=== PATIENT | female | born 1950 | race Hispanic/Latino ===

== ENCOUNTER 2018-07-13 19:56 | Emergency (ER) | payer OTHER ==
[~2018-07-13] VITALS: Ht 162.6 cm; Wt 88.5 kg
--- OUTSIDE RECORDS SUMMARY | 2018-07-13 19:59 | XMS REPORT | Clinical Summary ---
Author Author ARABELLA [facility] Address Unknown Phone Unavailable Care Team Providers Care Manager Corporate Communications Name Role Phone Evgeny Colón MD PCP Allergies No Known Allergies Medications End Date Status Medication Sig Dispensed Refills Start Date Active atorvastatin (LIPITOR) 10 TAKE 1 (ONE) 2 MG tablet TABLET BY 8 MOUTH DAILY Active glimepiride (AMARYL) 2 MG TAKE 2 (TWO) 2 tablet TABLETS BY 8 MOUTH EVERY MORNING (BEFORE BREAKFAST) Active metFORMIN (GLUCOPHAGE) TOME [place] 2 1000 MG tablet TABLETA POR 8 V?A ORAL DOS VECES AL D?A 09/25/2017 Discontinued ciprofloxacin HCl (CIPRO) Take 1 tablet 12 tablet 0 500 MG tablet (500 mg 8 total) by mouth 2 (two) times daily for 6 days. 10/01/2017 ciprofloxacin HCl (CIPRO) Take 1 tablet 12 tablet 0 500 MG tablet (500 mg 8 total) by mouth 2 (two) times daily for 6 days. 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 09/24/2017 Encounters Care Team Description Date Type Specialty Maria Del Carmen Saul MD [facility], EvyMD Alexander Márquez Cherice Michelle, MD Swelling of arm (Primary Dx); History of diabetes mellitus 09/24/2017 Emergency General Internal Medicine - 09/25/2017 after 07/12/2017 Social History Date Tobacco Use Types Packs/Day Years Used Never Smoker Smokeless Tobacco: Never Used Alcohol Use Drinks/Week oz/Week Comments No Sex Assigned at Date Recorded Not on file Industry Job Start Date Occupation Not on file Not on file Not on file Travel End Travel History Travel Start No recent travel history available. Last Filed Vital Signs Time Taken Vital Sign Reading 09/25/2017 11:18 AM CDT Blood Pressure 131/63 09/25/2017 11:18 AM CDT Pulse 76 09/25/2017 11:18 AM CDT Temperature 37 C (98.6 F) 09/25/2017 11:18 AM CDT Respiratory Rate 17 09/25/2017 11:18 AM CDT Oxygen Saturation 96% - Inhaled Oxygen - Concentration 09/23/2017 8:22 PM CDT Weight 63.5 kg (140 lb) 09/23/2017 8:22 PM CDT Height 167.6 cm (5' 6") 09/23/2017 8:22 PM CDT Body Mass Index 22.6 Plan of Treatment Not on file Procedures Comments Procedure Name Priority Date/Time Associated Diagnosis XR SHOULDER RIGHT STAT 09/25/2017 COMPLETE MIN 2 VWS 12:59 PM CDT POCT-GLUCOSE METER Routine 09/25/2017 12:26 PM CDT POCT-GLUCOSE METER Routine 09/25/2017 9:21 AM CDT CBC W/PLT COUNT & AUTO Routine 09/25/2017 DIFFERENTIAL 5:34 AM CDT BASIC METABOLIC PANEL (7) Routine 09/25/2017 5:34 AM CDT CBC W/PLT COUNT & AUTO Routine 09/25/2017 DIFFERENTIAL 5:34 AM CDT POCT-GLUCOSE METER Routine 09/24/2017 9:08 PM CDT POCT-GLUCOSE METER Routine 09/24/2017 6:05 PM CDT HEPATIC FUNCTION PANEL Routine 09/24/2017 12:54 PM CDT CREATINE KINASE (CK) Routine 09/24/2017 12:54 PM CDT POCT-GLUCOSE METER Routine 09/24/2017 11:49 AM CDT POCT-GLUCOSE METER Routine 09/24/2017 7:54 AM CDT BLOOD CULTURE STAT 09/24/2017 5:40 AM CDT BLOOD CULTURE STAT 09/24/2017 5:[address] UPPER EXTREMITY WITH STAT 09/24/2017 CONTRAST RIGHT 4:25 AM CDT VENOUS DOPPLER ARMS STAT 09/23/2017 BILATERAL 11:59 PM CDT CBC W/PLT COUNT & AUTO STAT 09/23/2017 DIFFERENTIAL 10:44 PM CDT LACTIC ACID, VENOUS STAT 09/23/2017 10:44 PM CDT BLOOD GAS, VENOUS STAT 09/23/2017 10:44 PM CDT BASIC METABOLIC PANEL (7) STAT 09/23/2017 10:44 PM CDT CBC W/PLT COUNT & AUTO STAT 09/23/2017 DIFFERENTIAL 10:44 PM CDT after 07/12/2017 Results * XR shoulder complete 2 views min right (09/25/2017 12:59 PM CDT) Specimen Narrative Performed At FINAL REPORT [facility] EXAM: Right shoulder, 4 images HISTORY PROVIDED: Swelling of arm COMPARISON: CT upper extremity 09/24/2017 IMPRESSION: No fracture, dislocation, or osseous destruction. There is rotator cuff calcific tendinosis. The visualized right lung field is unremarkable. Signed: Jh Jones MD Report Verified Date/Time:09/25/2017 13:42:29 Reading Location: [facility] Reading Room Procedure Note Interface, External Ris In - 09/25/2017 1:44 PM CDT FINAL REPORT EXAM: Right shoulder, 4 images HISTORY PROVIDED: Swelling of arm COMPARISON: CT upper extremity 09/24/2017 IMPRESSION: No fracture, dislocation, or osseous destruction. There is rotator cuff calcific tendinosis. The visualized right lung field is unremarkable. Signed: Jh Jones MD Report Verified Date/Time: 09/25/2017 13:42:29 Reading Location: [facility] Mammo Reading Room Performing Organization Address City/State/Zipcode Phone Number [facility] * POC-Glucose meter (09/25/2017 12:26 PM CDT) Only the most recent of 6 results within the time period is included. POC-Glucose Meter 245 (H)Comment: TESTED AT 70 - 110 mg/dL [address] [address] Specimen Blood Performing Organization Address City/[facility] Phone Number [place] [phone] [place] [address] [facility] * CBC with platelet count + automated diff (09/25/2017 5:34 AM CDT) Only the most recent of 2 results within the time period is included. WBC 11.2 (H) 3.5 - 10.5 K/L [facility] RBC 3.89 (L) 3.93 - 5.22 M/L [facility] Hemoglobin 11.1 (L) 11.2 - 15.7 GM/DL [facility] Hematocrit 33.4 (L) 34.1 - 44.9 % [facility] MCV 85.9 79.4 - 94.8 fL [facility] MCH 28.5 25.6 - 32.2 pg [facility] MCHC 33.2 32.2 - 35.5 GM/DL [facility] RDW 13.2 11.7 - 14.4 % [facility] Platelets 343 150 - 450 K/CU MM [facility] MPV 10.5 9.4 - 12.3 fL [facility] nRBC 0 0 - 0 /100 WBC [facility] % Neutros 68 % [facility] % Lymphs 17 % [facility] % Monos 10 % [facility] % Eos 3 % [facility] % Baso 1 % [facility] # Neutros 7.66 (H) 1.56 - 6.13 K/L [facility] # Lymphs 1.95 1.18 - 3.74 K/L [facility] # Monos 1.15 (H) 0.24 - 0.36 K/L [facility] # Eos 0.30 0.04 - 0.36 K/L [facility] # Baso 0.10 (H) 0.01 - 0.08 K/L [facility] Immature 0 0 - 1 % [facility] Granulocytes-Relative [facility] Specimen Blood Performing Organization Address City/State/Zipcode Phone Number [facility] [address] [place] [address] [facility] * Basic metabolic panel (09/25/2017 5:34 AM CDT) Only the most recent of 2 results within the time period is included. Sodium 139 136 - 145 meq/L [facility] Potassium 4.2 3.5 - 5.1 meq/L [facility] Chloride 108 (H) 98 - 107 meq/L [facility] CO2 24 22 - 29 meq/L [facility] BUN 13 7 - 21 mg/dL [facility] Creatinine 0.95 0.57 - 1.25 mg/dL [facility] Glucose 166 (H) 70 - 105 mg/dL [facility] Calcium 9.1 8.4 - 10.2 mg/dL [facility] EGFR 58Comment: ESTIMATED GFR IS mL/min/1.73 sq m [facility] NOT ACCURATE CREATININE [facility] CLEARANCE IN PREDICTING GLOMERULAR FILTRATION RATE. ESTIMATED GFR IS NOT APPLICABLE FOR DIALYSIS PATIENTS. Specimen Blood Performing Organization Address City/State/Zipcode Phone Number [address] [address] [phone] [place] [address] * Creatine Kinase (CK) (09/24/2017 12:54 PM CDT) Total CK 47 29 - 200 U/L [facility] Specimen Blood Performing Organization Address City/[facility] Phone Number [address] [address] [phone] [place] [address] * Hepatic function panel (09/24/2017 12:54 PM CDT) Protein, Total 6.3 6.0 - 8.3 gm/dL [facility] Albumin 3.4 (L) 3.5 - 5.0 g/dL [facility] Total Bilirubin 0.8 0.2 - 1.2 mg/dL [facility] Bilirubin, Direct 0.4 0.1 - 0.5 mg/dL [facility] Alkaline Phosphatase 87 40 - 150 U/L [facility] AST 13 5 - 34 U/L [facility] ALT 12 6 - 55 U/L [facility] Specimen Blood Performing Organization Address City/[facility] [place]/Zipcode Phone Number [address] [address] [facility] * Blood culture (09/24/2017 5:40 AM CDT) Only the most recent of 2 results within the time period is included. Result No growth in 5 days [facility] Specimen Blood Performing Organization Address City/State/Zipcode Phone Number [facility] [address] [place] [address] [facility] * CT upper extremity with contrast right (09/24/2017 4:25 AM CDT) Specimen Narrative Performed At FINAL REPORT [facility] CT, EXTREMITY, UPPER, WITH CONTRAST, RIGHT INDICATION: Hand erythema, swelling, cellulitis suspected COMPARISON: None TECHNIQUE: Contrast enhanced CT examination of the right upper extremity from the shoulder joint through the distal phalanges. Coronal and sagittal reformatted images provided. DOSE REDUCTION: Dose modulation, iterative reconstruction, and/or weight-based adjustment of the mA/kV was utilized to reduce the radiation dose to as low as reasonably achievable. FINDINGS: Osseous structures: No fracture or osseous erosion is present. Upper extremity joints are normally aligned. Calcific tendinosis is present in the rotator cuff. Included osseous structures in the right hemithorax, hemiabdomen and upper portion of the right lower extremity are intact. Soft tissue structures: Mild soft tissue edema noted superficially in the hand. No subcutaneous emphysema or discrete fluid collection. There is no fluid collection noted in the remaining portions of the upper chest cavity. Fascial planes are preserved throughout the imaged volume. Vascular opacification is normal for bolus timing. Included soft tissue structures of the right hemithorax, hemiabdomen and right upper extremity are unremarkable. IMPRESSION: Soft tissue thickening and edema in the right hand in keeping with provided diagnosis of cellulitis. No evidence for abscess formation. No acute osseous abnormality. Signed: JR Eaton Robert MD Report Verified Date/Time:09/24/2017 04:46:06 Reading Location: [address] Reading Room Procedure Note Interface, External Ris In - 09/24/2017 4:48 AM CDT FINAL REPORT CT, EXTREMITY, UPPER, WITH CONTRAST, RIGHT INDICATION: Hand erythema, swelling, cellulitis suspected COMPARISON: None TECHNIQUE: Contrast enhanced CT examination of the right upper extremity from the shoulder joint through the distal phalanges. Coronal and sagittal reformatted images provided. DOSE REDUCTION: Dose modulation, iterative reconstruction, and/or weight-based adjustment of the mA/kV was utilized to reduce the radiation dose to as low as reasonably achievable. FINDINGS: Osseous structures: No fracture or osseous erosion is present. Upper extremity joints are normally aligned. Calcific tendinosis is present in the rotator cuff. Included osseous structures in the right hemithorax, hemiabdomen and upper portion of the right lower extremity are intact. Soft tissue structures: Mild soft tissue edema noted superficially in the hand. No subcutaneous emphysema or discrete fluid collection. There is no fluid collection noted in the remaining portions of the upper chest cavity. Fascial planes are preserved throughout the imaged volume. Vascular opacification is normal for bolus timing. Included soft tissue structures of the right hemithorax, hemiabdomen and right upper extremity are unremarkable. IMPRESSION: Soft tissue thickening and edema in the right hand in keeping with provided diagnosis of cellulitis. No evidence for abscess formation. No acute osseous abnormality. Signed: JR Uma, Nima GRACE Report Verified Date/Time: 09/24/2017 04:46:06 Reading Location: [address] Reading Room Performing Organization Address City/State/Zipcode Phone Number [employer] [facility] * Venous doppler arms bilateral (09/23/2017 11:59 PM CDT) Ejection Fraction [facility] Specimen Impressions Performed At Right Impression [facility] 1. There is no deep venous obstruction in the jugular, subclavian, axillary, [facility] brachial, radial or ulnar veins. 2. There is partial echogenic superficial venous obstruction in the cephalic vein (antecubital area). 3. There is no superficial venous obstruction in the basilic vein. Left Impression 1. There is no deep venous obstruction in the jugular, subclavian, axillary, brachial, radial or ulnar veins. 2. There is no superficial venous obstruction in the cephalic or basilic veins. Conclusions Summary Venous duplex imaging and compression of the bilateral upper extremities was performed. The veins were adequately visualized. The bilateral deep venous systems were patent and compressible with no evidence of thrombus. The right superficial venous system was positive with chronic thrombus. The left superficial venous system was patent and compressible with no evidence of thrombus. Signature Velocities are measured in cm/s ; Diameters are measured in cm Narrative Performed At [facility] - Upper Extremities Veins [facility] Demographics [facility] Patient Name LINDA FLORES Date of Study09/23/2017 JOSE [id number] [id number] Visit Number [id number] Gender Female Accession Number [id number] Date of Birth1950 [facility] Room [id number] Physician SonographDick Castaneda Interpreting Crystal Hoyos, RPRISHABH Procedure Type of Study: Veins: Upper Extremities Veins, VENOUS DOPPLER ARMS, BILATERAL. Indications for Study:Arm swelling. Patient Status:STAT. Study Location:Portable. Technical Quality:Adequate visualization. - Results were reported to: ZAHEER Martinez @ 12:05AM ([facility]). Risk Factors History of Disease + +----+ + !Diagnosis !Date!Comments! + +----+ + !History/Risk Factors: !!DM, HLD, Recent Lifting ! + +----+ + Procedure Note Interface, External Ris In - 09/24/2017 4:40 AM CDT [facility] - Upper Extremities Veins Demographics Patient Name LINDA FLORES Date of Study 09/23/2017 JOSE Age 67 Visit Number [id number] Gender Female Accession Number [id number] Date of 1950 Referring MARIA DEL CARMEN SAUL Room Number ED24 Physician Event Decorator Macario Castaneda Interpreting James Bolden, Physician , RPVI Procedure Type of Study: Veins: Upper Extremities Veins, VENOUS DOPPLER ARMS, BILATERAL. Indications for Study:Arm swelling. Patient Status:STAT. Study Location:Portable. Technical Quality:Adequate visualization. - Results were reported to: ZAHEER Martinez @ 12:05AM (T). Risk Factors History of Disease + +----+ + !Diagnosis !Date!Comments ! + +----+ + !History/Risk Factors: ! !DM, HLD, Recent Lifting ! + +----+ + Impressions Right Impression 1. There is no deep venous obstruction in the jugular, subclavian, axillary, brachial, radial or ulnar veins. 2. There is partial echogenic superficial venous obstruction in the cephalic vein (antecubital area). 3. There is no superficial venous obstruction in the basilic vein. Left Impression 1. There is no deep venous obstruction in the jugular, subclavian, axillary, brachial, radial or ulnar veins. 2. There is no superficial venous obstruction in the cephalic or basilic veins. Conclusions Summary Venous duplex imaging and compression of the bilateral upper extremities was performed. The veins were adequately visualized. The bilateral deep venous systems were patent and compressible with no evidence of thrombus. The right superficial venous system was positive with chronic thrombus. The left superficial venous system was patent and compressible with no evidence of thrombus. Signature Velocities are measured in cm/s ; Diameters are measured in cm Performing Organization Address City/State/[facility] Phone Number [facility] * Lactic acid, venous, whole blood (09/23/2017 10:44 PM CDT) Lactate, Venous 1.7Comment: Specimen slightly 0.5 - 2.2 mmol/L [facility] hemolyzed [facility] Specimen Blood Narrative Performed At Effective 06/29/2015: Units/Reference Range Change [facility] New: 0.5-2.2 mmol/LPrevious: 5-20 mg/dL [facility] Performing Organization Address City/[facility] Phone Number [facility] [address] [place] [address] [facility] * Blood gas, venous (09/23/2017 10:44 PM CDT) pH, Paul 7.35 7.32 - 7.42 [facility] pCO2, Paul 52 (H) 41 - 51 mmHg [facility] pO2, Paul 16 (L) 25 - 40 mmHg [facility] O2 Sat, Paul 17.3 (L) 40.0 - 70.0 % [facility] HCO3, Paul 28 21 - 29 mmol/L [facility] Base Excess, Paul 2.0 -2.0 - 3.0 mmol/L [facility] Patient Temperature 38.0 C [facility] FIO2 21.0 % [facility] Specimen Blood Performing Organization Address City/[facility]/Zipcode Phone Number [facility] [address] [place], [place] [phone] [facility] after 07/12/2017 Insurance Payer Benefit Subscriber ID Type Phone Address Plan / Group [employer] TEX[employer] xxxxxxxxx [facility] ALL Contracted Advance Directives For more information, please contact: [address] [phone] Date Inactivated Comments Code Status Date Activated 09/25/2017 6:05 PM Full Code 09/24/2017 5:43 AM This code status was determined by: Patient
--- OUTSIDE RECORDS SUMMARY | 2018-07-13 19:59 | XMS REPORT ---
Author Author [facility] Address Unknown Phone Unavailable Care Team Providers Care Manager English Name Role Phone KATHIE ACUNA Unavailable Unavailable Problems This patient has no known problems. Allergies, Adverse Reactions, Alerts This patient has no known allergies or adverse reactions. Medications This patient has no known medications. Results Test Description Test Time Test Comments Text Results Atomic Results Result Comments BLOOD CULTURE 2017-09-29 11:00:00 CULTURE (BEAKER) (test pkpf=5614) No growth in 5 days BLOOD [id number] 11:00:00* Test Item Value Reference Range Comments CULTURE (BEAKER) (test nhnw=7537) No growth in 5 days RAD, SHOULDER, COMPLETE (MIN 2 VIEWS), [id number] 13:42:00Reason for exam:- >please obtain ap, true ap, and axillary lateralShould this be performed at the bedside?->YesFINAL REPORT EXAM: Right shoulder, 4 images HISTORY PROVIDED: Swelling of arm COMPARISON: CT upper extremity 09/24/2017 IMPRESSION:No fracture, dislocation, or osseous destruction. There is rotator cuff calcific tendinosis. The visualized right lung field is unremarkable. Signed: Jh Jones MDRephca midwest division Verified Date/Time: 09/25/2017 13:42:29 Reading Location: [facility] Mammo Reading Room -GLUCOSE [id number] 12:30:00* Test Item Value Reference Range Comments POC-GLUCOSE METER (BEAKER) (test susw=5397) 245 mg/dL 70-110 [address]ED AT [address] [address] POCT-GLUCOSE [id number] 09:25:00* Test Item Value Reference Range Comments POC-GLUCOSE METER (BEAKER) (test xfyn=3894) 187 mg/dL 70-110 TESTED AT [address] [address] BASIC METABOLIC [id number] 06:33:00* Test Item Value Reference Range Comments SODIUM (BEAKER) (test zisb=926) 139 meq/L 136-145 POTASSIUM (BEAKER) (test yhwx=907) 4.2 meq/L 3.5-5.1 CHLORIDE (BEAKER) (test bswx=972) 108 meq/L 98-107 CO2 (BEAKER) (test mzds=040) 24 meq/L 22-29 BLOOD UREA NITROGEN (BEAKER) (test zpmq=671) 13 mg/dL 7-21 CREATININE (BEAKER) (test uyhv=292) 0.95 mg/dL 0.57-1.25 GLUCOSE RANDOM (BEAKER) (test wawn=584) 166 mg/dL 70-105 CALCIUM (BEAKER) (test zqgq=464) 9.1 mg/dL 8.4-10.2 EGFR (BEAKER) (test fyvj=1581) 58 mL/min/1.73 sq m ESTIMATED GFR IS NOT ACCURATE CREATININE CLEARANCE IN PREDICTING GLOMERULAR FILTRATION RATE. ESTIMATED GFR IS NOT APPLICABLE FOR DIALYSIS PATIENTS. CBC W/PLT COUNT & AUTO [id number] 05:53:00* Test Item Value Reference Range Comments WHITE BLOOD CELL COUNT (BEAKER) (test kgqk=136) 11.2 K/ L 3.5-10.5 RED BLOOD CELL COUNT (BEAKER) (test kjan=243) 3.89 M/ L 3.93-5.22 HEMOGLOBIN (BEAKER) (test kumw=994) 11.1 GM/DL 11.2-15.7 HEMATOCRIT (BEAKER) (test byeh=552) 33.4 % 34.1-44.9 MEAN CORPUSCULAR VOLUME (BEAKER) (test ussj=084) 85.9 fL 79.4-94.8 MEAN CORPUSCULAR HEMOGLOBIN (BEAKER) (test jggw=257) 28.5 pg 25.6-32.2 MEAN CORPUSCULAR HEMOGLOBIN CONC (BEAKER) (test ltlj=095) 33.2 GM/DL 32.2-35.5 RED CELL DISTRIBUTION WIDTH (BEAKER) (test saha=713) 13.2 % 11.7-14.4 PLATELET COUNT (BEAKER) (test zogv=853) 343 K/CU MM 150-450 MEAN PLATELET VOLUME (BEAKER) (test rvgr=380) 10.5 fL 9.4-12.3 NUCLEATED RED BLOOD CELLS (BEAKER) (test tnqd=015) 0 /100 WBC 0-0 NEUTROPHILS RELATIVE PERCENT (BEAKER) (test yhkq=756) 68 % LYMPHOCYTES RELATIVE PERCENT (BEAKER) (test eadk=482) 17 % MONOCYTES RELATIVE PERCENT (BEAKER) (test qmhy=744) 10 % EOSINOPHILS RELATIVE PERCENT (BEAKER) (test tiwt=592) 3 % BASOPHILS RELATIVE PERCENT (BEAKER) (test gndj=864) 1 % NEUTROPHILS ABSOLUTE COUNT (BEAKER) (test akjr=852) 7.66 K/ L 1.56-6.13 LYMPHOCYTES ABSOLUTE COUNT (BEAKER) (test tclq=344) 1.95 K/ L 1.18-3.74 MONOCYTES ABSOLUTE COUNT (BEAKER) (test gelr=910) 1.15 K/ L 0.24-0.36 EOSINOPHILS ABSOLUTE COUNT (BEAKER) (test tweb=221) 0.30 K/ L 0.04-0.36 BASOPHILS ABSOLUTE COUNT (BEAKER) (test qpiy=448) 0.10 K/ L 0.01-0.08 IMMATURE GRANULOCYTES-RELATIVE PERCENT (BEAKER) (test xpyh=6776) 0 % 0-1 POCT-GLUCOSE [id number] 21:38:00* Test Item Value Reference Range Comments POC-GLUCOSE METER (BEAKER) (test pwgy=6911) 238 mg/dL 70-110 TESTED AT [address] [address] POCT-GLUCOSE [id number] 18:20:00* Test Item Value Reference Range Comments POC-GLUCOSE METER (BEAKER) (test mmfp=7446) 120 mg/dL 70-110 TESTED AT [address] [address] HEPATIC FUNCTION [id number] 14:26:00* Test Item Value Reference Range Comments TOTAL PROTEIN (BEAKER) (test ehpc=124) 6.3 gm/dL 6.0-8.3 ALBUMIN (BEAKER) (test qsir=9319) 3.4 g/dL 3.5-5.0 BILIRUBIN TOTAL (BEAKER) (test vhbt=725) 0.8 mg/dL 0.2-1.2 BILIRUBIN DIRECT (BEAKER) (test kjjm=628) 0.4 mg/dL 0.1-0.5 ALKALINE PHOSPHATASE (BEAKER) (test hzbl=861) 87 U/L 40-150 AST (SGOT) (BEAKER) (test sfqr=763) 13 U/L 5-34 ALT (SGPT) (BEAKER) (test wgmp=001) 12 U/L 6-55 CREATINE KINASE (CK)2017-09-24 14:26:00* Test Item Value Reference Range Comments CREATINE KINASE TOTAL (BEAKER) (test ueuc=309) 47 U/L 29-200 POCT-GLUCOSE [id number] 13:21:00* Test Item Value Reference Range Comments POC-GLUCOSE METER (MADYSONAKER) (test mzhe=9859) 206 mg/dL 70-110 TESTED AT [place] [id number] [facility] [address] POCT-GLUCOSE [id number] 11:52:00* Test Item Value Reference Range Comments POC-GLUCOSE METER (MADYSONAKER) (test gwzx=7317) 193 mg/dL 70-110 TESTED AT [address] [address] [address], EXTREMITY, UPPER, WITH CONTRAST, [id number] 04:46:00FINAL REPORT CT, EXTREMITY, UPPER, WITH CONTRAST, RIGHT INDICATION: Hand erythema, swelling, cellulitis suspected COMPARISON: None TECHNIQUE: Contrast enhanced CT examination of the right upper extremity from the shoulder joint through the distal phalanges. Coronal and sagittal reformatted images provided. DOSE REDUCTION: Dose modulation, iterative reconstruction, and/or fatemeh ght-based adjustment of the mA/kV was utilized to reduce the radiation dose to a s low as reasonably achievable. FINDINGS:Osseous structures:No fracture or osseo us erosion is present. Upper extremity joints are normally aligned. Calcific ten dinosis is present in the rotator cuff. Included osseous structures in the right hemithorax, hemiabdomen and upper portion of the right lower extremity are inta ct. Soft tissue structures:Mild soft tissue edema noted superficially in the alvarez d. No subcutaneous emphysema or discrete fluid collection. There is no fluid col lection noted in the remaining portions of the upper chest cavity. Fascial plane s are preserved throughout the imaged volume. Vascular opacification is normal f or bolus timing. Included soft tissue structures of the right hemithorax, hemiab domen and right upper extremity are unremarkable. IMPRESSION: Soft tissue thicke sho and edema in the right hand in keeping with provided diagnosis of celluliti s. No evidence for abscess formation. No acute osseous abnormality. Signed: Sheila alvarez JR, Carlos Grant Verified Date/Time: 09/24/2017 04:46:06 Reading L ocation: OQMT 25th [facility] Reading Room C METABOLIC [id number] 23:06:00* Test Item Value Reference Range Comments SODIUM (BEAKER) (test hpqa=068) 137 meq/L 136-145 POTASSIUM (BEAKER) (test hnlm=469) 3.8 meq/L 3.5-5.1 CHLORIDE (BEAKER) (test etyu=575) 104 meq/L 98-107 CO2 (BEAKER) (test cxwo=273) 24 meq/L 22-29 BLOOD UREA NITROGEN (BEAKER) (test kdbc=134) 16 mg/dL 7-21 CREATININE (BEAKER) (test ltdt=950) 1.17 mg/dL 0.57-1.25 GLUCOSE RANDOM (BEAKER) (test njmo=886) 283 mg/dL 70-105 CALCIUM (BEAKER) (test zfua=089) 9.8 mg/dL 8.4-10.2 EGFR (BEAKER) (test zylp=3195) 46 mL/min/1.73 sq m ESTIMATED GFR IS NOT ACCURATE CREATININE CLEARANCE IN PREDICTING GLOMERULAR FILTRATION RATE. ESTIMATED GFR IS NOT APPLICABLE FOR DIALYSIS PATIENTS. LACTIC ACID, VENOUS, WHOLE [id number] 23:03:00* Test Item Value Reference Range Comments LACTATE BLOOD VENOUS (2) (BEAKER) (test kcgx=4117) 1.7 mmol/L 0.5-2.2 Specimen slightly hemolyzed Effective 06/29/2015: Units/Reference Range ChangeNew: 0.5-2.2 mmol/L Previous: 5 -20 mg/dLBLOOD GAS, [id number] 22:56:00* Test Item Value Reference Range Comments PH VENOUS (BEAKER) (test khqy=370) 7.35 7.32-7.42 PCO2 VENOUS (BEAKER) (test ygoh=320) 52 mmHg 41-51 PO2 VENOUS (BEAKER) (test rinj=574) 16 mmHg 25-40 O2 SATURATION VENOUS (BEAKER) (test isrf=559) 17.3 % 40.0-70.0 HCO3 VENOUS (BEAKER) (test qpgz=564) 28 mmol/L 21-29 BASE EXCESS VENOUS (BEAKER) (test bycu=657) 2.0 mmol/L -2.0-3.0 PATIENT TEMPERATURE (BEAKER) (test egjk=7259) 38.0 C FIO2 (BEAKER) (test fugs=5317) 21.0 % CBC W/PLT COUNT & AUTO [id number] 22:53:00* Test Item Value Reference Range Comments WHITE BLOOD CELL COUNT (BEAKER) (test usjb=377) 15.9 K/ L 3.5-10.5 RED BLOOD CELL COUNT (BEAKER) (test eblm=831) 4.46 M/ L 3.93-5.22 HEMOGLOBIN (BEAKER) (test soqx=417) 12.8 GM/DL 11.2-15.7 HEMATOCRIT (BEAKER) (test mtpg=316) 38.6 % 34.1-44.9 MEAN CORPUSCULAR VOLUME (BEAKER) (test anlp=403) 86.5 fL 79.4-94.8 MEAN CORPUSCULAR HEMOGLOBIN (BEAKER) (test jmhb=175) 28.7 pg 25.6-32.2 MEAN CORPUSCULAR HEMOGLOBIN CONC (BEAKER) (test lyst=064) 33.2 GM/DL 32.2-35.5 RED CELL DISTRIBUTION WIDTH (BEAKER) (test lvyz=414) 13.3 % 11.7-14.4 PLATELET COUNT (BEAKER) (test ovxv=625) 375 K/CU MM 150-450 MEAN PLATELET VOLUME (BEAKER) (test gtmx=430) 10.6 fL 9.4-12.3 NUCLEATED RED BLOOD CELLS (BEAKER) (test nbwn=020) 0 /100 WBC 0-0 NEUTROPHILS RELATIVE PERCENT (BEAKER) (test rxov=313) 78 % LYMPHOCYTES RELATIVE PERCENT (BEAKER) (test fqvf=799) 13 % MONOCYTES RELATIVE PERCENT (BEAKER) (test opvh=621) 8 % EOSINOPHILS RELATIVE PERCENT (BEAKER) (test frtb=210) 0 % BASOPHILS RELATIVE PERCENT (BEAKER) (test duov=426) 1 % NEUTROPHILS ABSOLUTE COUNT (BEAKER) (test wzbd=068) 12.35 K/ L 1.56-6.13 LYMPHOCYTES ABSOLUTE COUNT (BEAKER) (test kskx=245) 2.09 K/ L 1.18-3.74 MONOCYTES ABSOLUTE COUNT (BEAKER) (test kfyo=373) 1.28 K/ L 0.24-0.36 EOSINOPHILS ABSOLUTE COUNT (BEAKER) (test huli=663) 0.05 K/ L 0.04-0.36 BASOPHILS ABSOLUTE COUNT (BEAKER) (test iprq=274) 0.09 K/ L 0.01-0.08 IMMATURE GRANULOCYTES-RELATIVE PERCENT (BEAKER) (test euqu=6572) 0 % 0-1
[2018-07-13] MEDS ORDERED: ONDANSETRON HCL INJ 2MG/ML 2ML 2 MG/ML VIAL IV STA (20:34)
[2018-07-13] MEDS ORDERED: IBUPROFEN 600 MG TAB PO STA (20:34)
[2018-07-13] MEDS ORDERED: SODIUM CHLORIDE 0.9% 1000ML 1,000 ML ONE (20:40)
[2018-07-13] MEDS ORDERED: SODIUM CHLORIDE 0.9% 1000ML 1,000 ML IV ONE (20:45)
--- NOTE | 2018-07-13 20:59 | Diagnostic Imaging Report ---
EXAMINATION: PA and lateral views of the chest. COMPARISON: None CLINICAL HISTORY: Weakness, nausea, vomiting, abdominal bloating DISCUSSION: Lines/tubes: None. Lungs: The lungs are well inflated and clear. There is no evidence of pneumonia or pulmonary edema. Pleura: There is no pleural effusion or pneumothorax. Heart and mediastinum: Cardiomediastinal silhouette is unremarkable. Pulmonary vasculature is normal. Bones and soft tissues: No acute bony abnormalities. Degenerative changes in the thoracic spine IMPRESSION: No acute cardiopulmonary abnormalities. Signed by: Dr. Evgeny Pandey M.D. on 07/13/2018 8:55 PM
[2018-07-13] MEDS ORDERED: SODIUM CHLORIDE 0.9% 500ML 500 ML ONE (21:16)
--- NOTE | 2018-07-15 06:52 | NUR ---
PER RENETTA SCHWAB, RECVD CALL FROM LABORATORY LATE YESTERDAY EVENING FOR POSITIVE BLOOD CULTURE (GRAM NEG BACCILLI) FOR PATIENT THAT WAS DX'D WITH FLU B POSITIVE, NOTFIED BOTH PATIENTS (WHO STATED IS DOING MUCH BETTER BUT STILL HAVING SOME FEVERS) AND PATIENTS DAUGHTER (GABRIELLE MEDINA) OF NEED TO RETURN TO EMERGENCY ROOM TO BE RE-EVALUATED AND POSSIBLE ADMISSION FOR IV ABX? SPOKE WITH DR. KELLY AND HE ASKED ME TO CALL THEM AND HAVE THEM RETURN TO ER FOR POSSIBLE ADMISSION. WILL NOTIFY VALENTIN SCHWAB (DAY SHIFT CHARGE AT [facility] ER) OF PATIENTS RETURN TO ER FOR FURTHER TREATMENT AND POSSIBLE ADMISSION.
== END 2018-07-13 22:35 | disposition home or self-care (01) ==
LOC: FSED 19:56
DX: R50.9 Fever, unspecified (principal); K52.9 Noninfective gastroenteritis and colitis, unspecified; J11.1 Influenza due to unidentified influenza virus with other respiratory manifestations; E11.9 Type 2 diabetes mellitus without complications
CPT/HCPCS: 71046; 80053; 81003; 83605; 85025; 87040; 87071; 87186; 87205; 87400; 99284; J7030; J7040

== ENCOUNTER 2018-07-15 08:33 | Inpatient (IN) | payer OTHER ==
[~2018-07-15] VITALS: Ht 167.6 cm; Wt 72.6 kg
--- OUTSIDE RECORDS SUMMARY | 2018-07-15 08:35 | XMS REPORT | Clinical Summary ---
Author Author ARABELLA [facility] Address Unknown Phone Unavailable Care Team Providers Care Sales Center Manager Name Role Phone Evgeny Colón MD PCP [...] Type Specialty Maria Del Carmen Saul MD [facility], EvyMD Alexander Márquez Cherice Michelle, MD Swelling of arm (Primary Dx); History of diabetes mellitus 09/24/2017 Emergency General Internal Medicine - 09/25/2017 after 07/14/2017 Social History Date Tobacco Use Types Packs/Day [...] STAT 09/23/2017 DIFFERENTIAL 10:44 PM CDT after 07/14/2017 Results * XR shoulder complete 2 views min right (09/25/2017 12:59 PM CDT) Specimen Narrative Performed At FINAL REPORT [facility] EXAM: Right shoulder, 4 images HISTORY PROVIDED: Swelling of arm COMPARISON: CT upper extremity 09/24/2017 IMPRESSION: No fracture, dislocation, or osseous destruction. There is rotator cuff calcific tendinosis. The visualized right lung field is unremarkable. Signed: Jh Jones MD Report Verified Date/Time:09/25/2017 13:42:29 Reading Location: [facility] Reading Room Procedure Note Interface, External Ris In - 09/25/2017 1:44 PM CDT FINAL REPORT EXAM: Right shoulder, 4 images HISTORY PROVIDED: Swelling of arm COMPARISON: CT upper extremity 09/24/2017 IMPRESSION: No fracture, dislocation, or osseous destruction. There is rotator cuff calcific tendinosis. The visualized right lung field is unremarkable. Signed: Jh Jones MD Report Verified Date/Time: 09/25/2017 13:42:29 Reading Location: [facility] Mammo Reading Room Performing Organization Address City/State/Zipcode Phone Number [facility] * POC-Glucose meter (09/25/2017 12:26 PM CDT) Only the most recent of 6 results within the time period is included. POC-Glucose Meter 245 (H)Comment: TESTED AT 70 - 110 mg/dL [address] [address] Specimen Blood Performing Organization Address City/[facility] Cent[facility]ode Phone Number [place] [phone] [place] [address] [facility] * CBC with platelet count + automated diff (09/25/2017 5:34 AM CDT) Only the most recent of 2 results within the time period is included. WBC 11.2 (H) 3.5 - 10.5 K/L [facility] RBC 3.89 (L) 3.93 - 5.22 M/L [facility] Hemoglobin 11.1 (L) 11.2 - 15.7 GM/DL [facility] Hematocrit 33.4 (L) 34.1 - 44.9 % [facility] MCV 85.9 79.4 - 94.8 fL [facility] MCH 28.5 25.6 - 32.2 pg [facility] MCHC 33.2 32.2 - 35.5 GM/DL [facility] RDW 13.2 11.7 - 14.4 % [facility] Platelets 343 150 - 450 K/CU MM [facility] MPV 10.5 9.4 - 12.3 fL [facility] nRBC 0 0 - 0 /100 WBC [facility] % Neutros 68 % [facility] % Lymphs 17 % [facility] % Monos 10 % [facility] % Eos 3 % [facility] % Baso 1 % [facility] # Neutros 7.66 (H) 1.56 - 6.13 K/L [facility] # Lymphs 1.95 1.18 - 3.74 K/L [facility] # Monos 1.15 (H) 0.24 - 0.36 K/L [facility] # Eos 0.30 0.04 - 0.36 K/L [facility] # Baso 0.10 (H) 0.01 - 0.08 K/L [facility] Immature 0 0 - 1 % [facility] Granulocytes-Relative [facility] Specimen Blood Performing Organization Address City/State/Zipcode Phone Number [facility] [address] [place] [address] [facility] * Basic metabolic panel (09/25/2017 5:34 AM CDT) Only the most recent of 2 results within the time period is included. Sodium 139 136 - 145 meq/L [facility] Potassium 4.2 3.5 - 5.1 meq/L [facility] Chloride 108 (H) 98 - 107 meq/L [facility] CO2 24 22 - 29 meq/L [facility] BUN 13 7 - 21 mg/dL [facility] Creatinine 0.95 0.57 - 1.25 mg/dL [facility] Glucose 166 (H) 70 - 105 mg/dL [facility] Calcium 9.1 8.4 - 10.2 mg/dL [facility] EGFR 58Comment: ESTIMATED GFR IS mL/min/1.73 sq m [facility] NOT ACCURATE CREATININE [facility] CLEARANCE IN PREDICTING GLOMERULAR FILTRATION RATE. ESTIMATED GFR IS NOT APPLICABLE FOR DIALYSIS PATIENTS. Specimen Blood Performing Organization Address City/State/Zipcode Phone Number [address] [address] [phone] [place] [address] * Creatine Kinase (CK) (09/24/2017 12:54 PM CDT) Total CK 47 29 - 200 U/L [facility] Specimen Blood Performing Organization Address City/[facility] Phone Number [address] [address] [phone] [place] [address] * Hepatic function panel (09/24/2017 12:54 PM CDT) Protein, Total 6.3 6.0 - 8.3 gm/dL [facility] Albumin 3.4 (L) 3.5 - 5.0 g/dL [facility] Total Bilirubin 0.8 0.2 - 1.2 mg/dL [facility] Bilirubin, Direct 0.4 0.1 - 0.5 mg/dL [facility] Alkaline Phosphatase 87 40 - 150 U/L [facility] AST 13 5 - 34 U/L [facility] ALT 12 6 - 55 U/L [facility] Specimen Blood Performing Organization Address City/[facility]/Zipcode Phone Number [address] [address] [facility] * Blood culture (09/24/2017 5:40 AM CDT) Only the most recent of 2 results within the time period is included. Result No growth in 5 days [facility] Specimen Blood Performing Organization Address City/State/Zipcode Phone Number [facility] [address] [place] [address] MED[facility] * CT upper extremity with contrast right (09/24/2017 4:25 AM CDT) Specimen Narrative Performed At FINAL REPORT [facility] CT, EXTREMITY, UPPER, WITH CONTRAST, RIGHT INDICATION: [...] MD Report Verified Date/Time:09/24/2017 04:46:06 Reading Location: [address] Reading Room Procedure Note Interface, External [...] Report Verified Date/Time: 09/24/2017 04:46:06 Reading Location: [address] Reading Room Performing Organization Address City/State/Zipcode Phone Number [employer] [facility] * Venous doppler arms bilateral (09/23/2017 11:59 PM CDT) Ejection Fraction [facility] Specimen Impressions Performed At Right Impression [facility] 1. There is no deep venous obstruction in the jugular, subclavian, axillary, [facility] brachial, radial or ulnar veins. 2. [...] Extremities Veins [facility] Demographics [facility] Patient Name LINDA FLORES Date of Study09/23/2017 JOSE [id number] Visit Number [id number] Gender Female Accession Number [id number] Date of Birth1950 [facility] Room FrpswaOH89 Physician SonographDick Castaneda Interpreting Crystal Hoyos, RPRISHABH Procedure Type of Study: Veins: Upper Extremities Veins, VENOUS DOPPLER ARMS, BILATERAL. Indications for Study:Arm swelling. Patient Status:STAT. Study Location:Portable. Technical Quality:Adequate visualization. - Results were reported to: ZAHEER Martinez @ 12:05AM ([facility]). Risk Factors History of Disease + +----+ + !Diagnosis !Date!Comments! + +----+ + !History/Risk Factors: !!DM, HLD, Recent Lifting ! + +----+ + Procedure Note Interface, External Ris In - 09/24/2017 4:40 AM CDT [facility] - Upper Extremities Veins Demographics Patient Name LINDA FLORES Date of Study 09/23/2017 JOSE Age 67 Visit Number [id number] Gender Female Accession Number [id number] Date of 1950 Referring MARIA DEL CARMEN SAUL Room Number ED24 Physician Information Technology Account Manager Macario Castaneda Interpreting James Bolden, Physician , [...] are measured in cm Performing Organization Address City/State/[facility] Cent[facility]ode Phone Number [facility] * Lactic acid, venous, whole blood (09/23/2017 10:44 PM CDT) Lactate, Venous 1.7Comment: Specimen slightly 0.5 - 2.2 mmol/L [facility] hemolyzed [facility] Specimen Blood Narrative Performed At Effective 06/29/2015: Units/Reference Range Change [facility] New: 0.5-2.2 mmol/LPrevious: 5-20 mg/dL [facility] Performing Organization Address City/[facility]conh Phone Number [facility] [address] [place] [address] [facility] * Blood gas, venous (09/23/2017 10:44 PM CDT) pH, Paul 7.35 7.32 - 7.42 [facility] pCO2, Paul 52 (H) 41 - 51 mmHg [facility] pO2, Paul 16 (L) 25 - 40 mmHg [facility] O2 Sat, Paul 17.3 (L) 40.0 - 70.0 % [facility] HCO3, Paul 28 21 - 29 mmol/L [facility] Base Excess, Paul 2.0 -2.0 - 3.0 mmol/L [facility] Patient Temperature 38.0 C [facility] FIO2 21.0 % [facility] Specimen Blood Performing Organization Address City/[facility]/Zipcode Phone Number [facility] [address] [place], [place] [phone] [facility] after 07/14/2017 Insurance Payer Benefit Subscriber ID Type Phone Address Plan / Group [employer] TEX[employer] xxxxxxxxx [facility] ALL Contracted Advance Directives For more information, please contact: [address] [phone] Date Inactivated Comments Code Status Date Activated 09/25/2017 6:05 PM Full Code 09/24/2017 5:43 AM This code status was determined by: Patient
[2018-07-15 09:10] LABS: BASOPHILS # (AUTO) 0.1 (0.0-0.1); BASOPHILS % 0.8 % (0.0-1.0); EOSINOPHILS % 0.4 % (0.0-6.0); HEMATOCRIT 31.7 % (34.2-44.1); HEMOGLOBIN 11.3 g/dL (12.0-16.0); LYMPHOCYTES # (AUTO) 0.6 (1.0-3.2); LYMPHOCYTES % 8.3 % (18.0-39.1); MEAN CORPUSCULAR HEMOGLOBIN 29.5 pg (28-32); MEAN CORPUSCULAR HGB CONC 35.6 g/dL (31-35); MEAN CORPUSCULAR VOLUME 82.8 fL (81-99); MONOCYTES # (AUTO) 0.3 (0.2-0.8); MONOCYTES % 4.2 % (4.4-11.3); NEUTROPHILS # (AUTO) 6.3 (2.1-6.9); NEUTROPHILS % 85.8 % (38.7-80.0); PLATELET COUNT 216 x10e3/uL (140-360); RED BLOOD COUNT 3.83 x10e6/uL (3.6-5.1); RED CELL DISTRIBUTION WIDTH 12.9 % (11.7-14.4)
[2018-07-15] MEDS ORDERED: PIPER-TAZ 3.375 GM 50 ML IV ONE (09:15)
--- NOTE | 2018-07-15 10:23 | NUR ---
PT STATES SHE FEELS URINARY DISCOMFORT WHEN TAKING TAMIFLU AND ASKS IF SHE SHOULD CONTINUE TAKING TAMIFLU; MD NOTIFIED AND ORDERED UA/URINARY CULTURE
[2018-07-15] MEDS ORDERED: SODIUM CHLORIDE FLUSH 10 ML SYR INJ PRN (11:00)
[2018-07-15] MEDS ORDERED: ONDANSETRON HCL INJ 2MG/ML 2ML 2 MG/ML VIAL IV PRN (11:00)
[2018-07-15] MEDS ORDERED: MECLIZINE HCL 12.5 MG TAB PO PRN (11:00)
--- OUTSIDE RECORDS SUMMARY | 2018-07-15 11:09 | XMS REPORT | Clinical Summary ---
Author Author ARABELLA [facility] Address Unknown Phone Unavailable Care Team Providers Care Truck Guard Name Role Phone Evgeny Colón MD PCP [...] Type Specialty Maria Del Carmen Saul MD [facility], EvyMD Alexander Márquez Cherice Michelle, MD Swelling [...] CDT) Specimen Narrative Performed At FINAL REPORT [place] EXAM: Right shoulder, 4 images HISTORY PROVIDED: Swelling of arm COMPARISON: CT upper extremity 09/24/2017 IMPRESSION: No fracture, dislocation, or osseous destruction. There is rotator cuff calcific tendinosis. The visualized right lung field is unremarkable. Signed: Jh Jones MD Report Verified Date/Time:09/25/2017 13:42:29 Reading Location: [facility] Reading Room Procedure Note Interface, External Ris In - 09/25/2017 1:44 PM CDT FINAL REPORT EXAM: Right shoulder, 4 images HISTORY PROVIDED: Swelling of arm COMPARISON: CT upper extremity 09/24/2017 IMPRESSION: No fracture, dislocation, or osseous destruction. There is rotator cuff calcific tendinosis. The visualized right lung field is unremarkable. Signed: Jh Jones MD Report Verified Date/Time: 09/25/2017 13:42:29 Reading Location: [facility] Mammo Reading Room Performing Organization Address City/State/Zipcode Phone Number [facility] * POC-Glucose meter (09/25/2017 12:26 PM CDT) Only the most recent of 6 results within the time period is included. POC-Glucose Meter 245 (H)Comment: TESTED AT 70 - 110 mg/dL [address] [address] Specimen Blood Performing Organization Address City/[facility] [address]/[facility] Services[facility] Phone Number [place] [phone] [place] [address] [facility] * CBC with platelet count + automated diff (09/25/2017 5:34 AM CDT) Only the most recent of 2 results within the time period is included. WBC 11.2 (H) 3.5 - 10.5 K/L [facility] RBC 3.89 (L) 3.93 - 5.22 M/L [facility] Hemoglobin 11.1 (L) 11.2 - 15.7 GM/DL [facility] Hematocrit 33.4 (L) 34.1 - 44.9 % [facility] MCV 85.9 79.4 - 94.8 fL [facility] MCH 28.5 25.6 - 32.2 pg [facility] MCHC 33.2 32.2 - 35.5 GM/DL [facility] RDW 13.2 11.7 - 14.4 % [facility] Platelets 343 150 - 450 K/CU MM [facility] MPV 10.5 9.4 - 12.3 fL [facility] nRBC 0 0 - 0 /100 WBC [facility] % Neutros 68 % [facility] % Lymphs 17 % [facility] % Monos 10 % [facility] % Eos 3 % [facility] % Baso 1 % [facility] # Neutros 7.66 (H) 1.56 - 6.13 K/L [facility] # Lymphs 1.95 1.18 - 3.74 K/L [facility] # Monos 1.15 (H) 0.24 - 0.36 K/L [facility] # Eos 0.30 0.04 - 0.36 K/L [facility] # Baso 0.10 (H) 0.01 - 0.08 K/L [facility] Immature 0 0 - 1 % [facility] Granulocytes-Relative [facility] Specimen Blood Performing Organization Address City/State/Zipcode Phone Number [facility] [address] [place] [address] [facility] * Basic metabolic panel (09/25/2017 5:34 AM CDT) Only the most recent of 2 results within the time period is included. Sodium 139 136 - 145 meq/L [facility] Potassium 4.2 3.5 - 5.1 meq/L [facility] Chloride 108 (H) 98 - 107 meq/L [facility] CO2 24 22 - 29 meq/L [facility] BUN 13 7 - 21 mg/dL [facility] Creatinine 0.95 0.57 - 1.25 mg/dL [facility] Glucose 166 (H) 70 - 105 mg/dL [facility] Calcium 9.1 8.4 - 10.2 mg/dL [facility] EGFR 58Comment: ESTIMATED GFR IS mL/min/1.73 sq m [facility] NOT ACCURATE CREATININE [facility] CLEARANCE IN PREDICTING GLOMERULAR FILTRATION RATE. ESTIMATED GFR IS NOT APPLICABLE FOR DIALYSIS PATIENTS. Specimen Blood Performing Organization Address City/State/Zipcode Phone Number [address] [address] [phone] [place] [address] * Creatine Kinase (CK) (09/24/2017 12:54 PM CDT) Total CK 47 29 - 200 U/L [facility] Specimen Blood Performing Organization Address City/[facility] [address]/[facility] Services[facility] Phone Number [address] [address] [phone] [place] [address] * Hepatic function panel (09/24/2017 12:54 PM CDT) Protein, Total 6.3 6.0 - 8.3 gm/dL [facility] Albumin 3.4 (L) 3.5 - 5.0 g/dL [facility] Total Bilirubin 0.8 0.2 - 1.2 mg/dL [facility] Bilirubin, Direct 0.4 0.1 - 0.5 mg/dL [facility] Alkaline Phosphatase 87 40 - 150 U/L [facility] AST 13 5 - 34 U/L [facility] ALT 12 6 - 55 U/L [facility] Specimen Blood Performing Organization Address City/[facility] [address]/Zipcode Phone Number [address] [address] [facility] * Blood culture (09/24/2017 5:40 AM CDT) Only the most recent of 2 results within the time period is included. Result No growth in 5 days [facility] Specimen Blood Performing Organization Address City/State/Zipcode Phone Number [facility] [address] [place] [address] [facility] * CT upper extremity with contrast right (09/24/2017 4:25 AM CDT) Specimen Narrative Performed At FINAL REPORT [place] CT, EXTREMITY, UPPER, WITH CONTRAST, RIGHT INDICATION: [...] MD Report Verified Date/Time:09/24/2017 04:46:06 Reading Location: [address] Reading Room Procedure Note Interface, External [...] Report Verified Date/Time: 09/24/2017 04:46:06 Reading Location: [address] Reading Room Performing Organization Address City/State/Zipcode Phone Number [employer] [facility] * Venous doppler arms bilateral (09/23/2017 11:59 PM CDT) Ejection Fraction [facility] Specimen Impressions Performed At Right Impression [facility] 1. There is no deep venous obstruction in the jugular, subclavian, axillary, [facility] brachial, radial or ulnar veins. 2. There [...] Extremities Veins [facility] Demographics [facility] Patient Name LINDA FLORES Date of Study09/23/2017 JOSE [id number] Visit Number [id number] Gender Female Accession Number [id number] Date of Birth1950 [facility] Room [id number] Physician SonographDick Castaneda Interpreting Crystal Hoyos, RPRISHABH Procedure Type of Study: Veins: Upper Extremities Veins, VENOUS DOPPLER ARMS, BILATERAL. Indications for Study:Arm swelling. Patient Status:STAT. Study Location:Portable. Technical Quality:Adequate visualization. - Results were reported to: ZAHEER Martinez @ 12:05AM ([facility]). Risk Factors History of Disease + +----+ + !Diagnosis !Date!Comments! + +----+ + !History/Risk Factors: !!DM, HLD, Recent Lifting ! + +----+ + Procedure Note Interface, External Ris In - 09/24/2017 4:40 AM CDT [facility] - Upper Extremities Veins Demographics Patient Name LINDA FLORES Date of Study 09/23/2017 JOSE Age 67 Visit Number [id number] Gender Female Accession Number [id number] Date of 1950 Referring MARIA DEL CARMEN SAUL Room Number [id number] Physician Sales Consulting Director Macario Castaneda Interpreting James Bolden, Physician , [...] are measured in cm Performing Organization Address City/State/[facility] Services[facility] Phone Number [facility] * Lactic acid, venous, whole blood (09/23/2017 10:44 PM CDT) Lactate, Venous 1.7Comment: Specimen slightly 0.5 - 2.2 mmol/L [facility] hemolyzed [facility] Specimen Blood Narrative Performed At Effective 06/29/2015: Units/Reference Range Change [facility] New: 0.5-2.2 mmol/LPrevious: 5-20 mg/dL [facility] Performing Organization Address City/[facility] [address]/[facility] Services[facility] Phone Number [facility] [address] [place] [address] [facility] * Blood gas, venous (09/23/2017 10:44 PM CDT) pH, Paul 7.35 7.32 - 7.42 [facility] pCO2, Paul 52 (H) 41 - 51 mmHg [facility] pO2, Paul 16 (L) 25 - 40 mmHg [facility] O2 Sat, Paul 17.3 (L) 40.0 - 70.0 % [facility] HCO3, Paul 28 21 - 29 mmol/L [facility] Base Excess, Paul 2.0 -2.0 - 3.0 mmol/L [facility] Patient Temperature 38.0 C [facility] FIO2 21.0 % [facility] Specimen Blood Performing Organization Address City/[facility] [address]/Zipcode Phone Number [facility] [address] [place], [place] [phone] [facility] after 07/14/2017 Insurance Payer Benefit Subscriber ID Type Phone Address Plan / Group [employer] xxxxxxxxx [facility] ALL Contracted Advance Directives For more information, please contact: [address] [phone] Date Inactivated Comments Code Status Date Activated 09/25/2017 6:05 PM Full Code 09/24/2017 5:43 AM This code status was determined by: Patient
[2018-07-15 11:10] LABS: BILIRUBIN,URINE NEGATIVE (NEGATIVE); CLARITY,URINE SL CLOUDY (CLEAR); COLOR,URINE YELLOW (YELLOW); KETONES,URINE NEGATIVE (NEGATIVE); LEUKOCYTE ESTERASE ,URINE TRACE (NEGATIVE); NITRITE,URINE NEGATIVE (NEGATIVE); PROTEIN,URINE DIPSTICK NEGATIVE (NEGATIVE); URINE UROBILINOGEN 0.2 mg/dL (0.2 - 1)
[2018-07-15 11:19] LABS: RBC,URINE 0-5 /HPF (0-5)
[2018-07-15 11:20] LABS: BACTERIA,URINE RARE /HPF; EPITHELIAL CELLS,URINE RARE /LPF; TRANSITIONAL EPI CELLS,URINE RARE
[2018-07-15 12:30] VITALS: BP 130/60
[2018-07-15] MEDS ORDERED: GLIMEPIRIDE2 MG PO (13:07)
[2018-07-15] MEDS ORDERED: LOSARTAN POTASS25 MG PO (13:07)
[2018-07-15] MEDS ORDERED: METFORMIN HCL500 MG PO (13:07)
[2018-07-15] MEDS ORDERED: ATORVASTATIN CA10 MG PO (13:07)
--- NOTE | 2018-07-15 13:55 | NUR ---
Visit made by the Spiritual Care Department Pastoral Visitor, [place] Cage. Pt sleeping soundly and no family present. Pastoral Visitor left a card describing availability of stain remover and instructions on how to contact a stain remover. ALYSSA PAIZ Director [facility] Spiritual Care Department O: [phone] Pager: [phone] ([phone] number calling from)
[2018-07-15 15:30] VITALS: BP 121/56
[2018-07-15] MEDS ORDERED: CEFEPIME 1GM/NS 0.9% 50 ML 50 ML IV SCH (18:30)
[2018-07-15] MEDS ORDERED: DEXTROSE 50% SYRINGE 50 ML IV PRN (18:30)
--- NOTE | 2018-07-15 19:00 | NUR ---
rounded with lead investigator nurse, patient aware of change. call khan within reach and bed in lowest position. family at bedside.
--- NOTE | 2018-07-15 19:00 | NUR ---
Report and Rounds completed. Patient ambulating halls with spouse,visitors at bedside. Call light within reach. Will continue to monitor.
[2018-07-15 20:00] VITALS: BP 121/57
[2018-07-15] MEDS: SODIUM CHLORIDE 0.45% 1,000 ML IV SCH (20:37)
[2018-07-15] MEDS: INSULIN LISPRO 100 UNIT/1 ML 3ML VIAL SQ SCH (22:02)
[2018-07-16] VITALS (10 sets, daily range): BP systolic 91–166; BP diastolic 46–78
[2018-07-16] MEDS: SODIUM CHLORIDE 0.45% 1,000 ML IV SCH (04:24)
[2018-07-16] MEDS: ACETAMINOPHEN 325 MG TAB PO PRN ×2 (04:40→20:55)
[2018-07-16 05:30] LABS: BASOPHILS # (AUTO) 0.1 (0.0-0.1); BASOPHILS % 0.9 % (0.0-1.0); EOSINOPHILS # (AUTO) 0.2 (0.0-0.4); EOSINOPHILS % 2.3 % (0.0-6.0); HEMATOCRIT 29.1 % (34.2-44.1); LYMPHOCYTES # (AUTO) 1.1 (1.0-3.2); LYMPHOCYTES % 16.9 % (18.0-39.1); MEAN CORPUSCULAR HEMOGLOBIN 29.1 pg (28-32); MEAN CORPUSCULAR HGB CONC 34.4 g/dL (31-35); MEAN CORPUSCULAR VOLUME 84.6 fL (81-99); MONOCYTES # (AUTO) 0.6 (0.2-0.8); MONOCYTES % 8.5 % (4.4-11.3); NEUTROPHILS # (AUTO) 4.7 (2.1-6.9); NEUTROPHILS % 70.9 % (38.7-80.0); PLATELET COUNT 238 x10e3/uL (140-360); RED BLOOD COUNT 3.44 x10e6/uL (3.6-5.1); RED CELL DISTRIBUTION WIDTH 13.1 % (11.7-14.4)
[2018-07-16 05:40] LABS: ALBUMIN 2.8 g/dL (3.5-5.0); ALBUMIN/GLOBULIN RATIO 0.9 (0.8-2.0); ANION GAP 11.1 mmol/L (8-16); CALCIUM 8.8 mg/dL (8.4-10.2); CREATININE, SERUM 1.23 mg/dL (0.57-1.11); POTASSIUM 4.1 mmol/L (3.5-5.1)
--- NOTE | 2018-07-16 06:00 | NUR ---
Resting in bed, at bedside. No issues or concerns. Call light within reach. Will continue to monitor.
--- NOTE | 2018-07-16 07:02 | NUR ---
received pt lying in bed with eyes open and Resp even and unlabored. denies pain. at bedside. call light within reach.
[2018-07-16] MEDS: INSULIN LISPRO 100 UNIT/1 ML 3ML VIAL SQ SCH ×4 (07:30→20:55)
[2018-07-16] MEDS: CEFEPIME 1GM/NS 0.9% 50 ML 50 ML IV SCH ×2 (08:48→20:55)
--- NOTE | 2018-07-16 12:45 | NUR ---
NEW CONSULT FOR CALLED IN, SPOKE TO SÁNCHEZ
[2018-07-16] MEDS: SODIUM CHLORIDE 0.9% 1000ML 1,000 ML IV SCH (12:49)
--- NOTE | 2018-07-16 12:50 | NUR ---
REPORT GIVEN TO SAMANTHA SCHWAB, PT TRANSFERRING TO ROOM 291.
--- NOTE | 2018-07-16 13:19 | History and Physical ---
CHIEF COMPLAINT: 1. Bacteremia gram-negative francisco. 2. Fever. SUMMARY: The patient is a 68-year-old female with fever, upper respiratory problem, came to the emergency room on July 13, 2018. The patient was at outpatient ER. The patient now was getting an influenza medication because she tested positive for influenza and blood culture was done. Approximately two days later, the blood culture came back to be gram-negative francisco bacteremia, and the patient was told to return to the clinic. In clinic on returning, the patient had fever of 102. The patient is now on cefepime 1 g q.12. The patient is otherwise stable. She is comfortable at this time. PAST MEDICAL HISTORY: Diabetes type 2, hypertension, dyslipidemia. PAST SURGICAL HISTORY: Complete hysterectomy. SOCIAL HISTORY: The patient does not smoke or use alcohol. No recreational drugs. ALLERGIES: NO KNOWN ALLERGIES. HOME MEDICATIONS: Lipitor, Amaryl, losartan, metformin. REVIEW OF SYSTEMS: Fever and generalized body ache and pain. PHYSICAL EXAMINATION: VITAL SIGNS: Temperature is T-max was 102, blood pressure 109/55, pulse rate is 93, respirations 20. GENERAL: The patient is not in acute distress. She is awake. HEENT: Normocephalic, atraumatic. Anicteric. NECK: Supple grossly. PULMONARY: Diminished breath sounds without any wheezing. CARDIOVASCULAR: S1, S2. Regular rate and rhythm. ABDOMEN: Soft, nontender, nondistention. EXTREMITIES: No gross cyanosis or edema. NEUROLOGIC: No gross focal deficit. LABORATORY DATA: WBC was 6.5, hemoglobin 10, hematocrit 29, platelets 238. Chemistry; sodium is 135, potassium 4.1, chloride 106, bicarb 22, BUN 15, creatinine 1.2, glucose is 184. Chest x-ray is otherwise unremarkable. Blood culture previously was gram-negative francisco. IMPRESSION: 1. Gram-negative francisco bacteremia. 2. Fever. 3. Recent influenza. The patient had some side effect from the Tamiflu, therefore she stopped. 4. Baseline multiple chronic medical problem, diabetes, hypertension, and dyslipidemia. PLAN: Continue with cefepime 1 g q.12. We will check the sensitivity. Continue with home medication, insulin sliding scale coverage. Echocardiogram to make sure that there is no endocarditis. Obtain a CT abdomen and pelvis without IV contrast due to chronic kidney disease. The patient will continue with current treatment at this time. Resume some home medication. We will consult Dr. Us for Infectious Disease. MD TATUM Gardiner/SHANON /[id number]
--- NOTE | 2018-07-16 13:25 | NUR ---
PATIENT OFF UNIT FOR CT, WILL BE TAKEN FROM RADIOLOGY TO ROOM 291. SAMANTHA SCHWAB NOTIFIED. FAMILY ESCORTED TO ROOM 291 TO AWAIT PATIENT
--- NOTE | 2018-07-16 14:04 | Diagnostic Imaging Report ---
EXAMINATION: CT of the abdomen and pelvis without contrast. TECHNIQUE: Spiral CT images of the abdomen and pelvis were performed from the lung bases to the lesser trochanters. No intravenous contrast was given per referring physician request. Coronal and sagittal reformatted images were obtained. COMPARISON: None. CLINICAL HISTORY:Bacteremia, abdominal pain DISCUSSION: ABSENCE OF INTRAVENOUS CONTRAST DECREASES SENSITIVITY FOR DETECTION OF FOCAL LESIONS AND VASCULAR PATHOLOGY. ABDOMEN/PELVIS: LOWER THORAX: Atherosclerotic coronary artery calcifications. HEPATOBILIARY:No focal hepatic lesion or intrahepatic biliary ductal dilatation. Gallbladder is collapsed. SPLEEN: No splenomegaly. PANCREAS: No focal masses or ductal dilatation. ADRENALS: No adrenal nodules. KIDNEYS/URETERS: Bilateral nonspecific perinephric fat stranding. 2 cm left peripelvic hypoattenuating structure (10-15 Hounsfield units) likely represents a cyst but is incompletely characterized in the absence of intravenous contrast. Punctate nonobstructing right upper pole calculus best seen on coronal image 65. Subcentimeter hypoattenuating lesion upper pole right kidney too small to further characterize but likely to represent a small cyst. No hydronephrosis. No ureteral calculi. PELVIC ORGANS/BLADDER: Urinary bladder is unremarkable. Uterus is not identified and has presumably been removed. No adnexal mass. PERITONEUM/RETROPERITONEUM: No ascites. No pneumoperitoneum. LYMPH NODES: No pelvic sidewall, retroperitoneal, or mesenteric lymphadenopathy. VESSELS: Limited evaluation without intravenous contrast. Atherosclerotic calcification of the abdominal aorta and branch vessels without aneurysmal dilatation. GI TRACT: The large bowel shows no distention or wall thickening. Scattered diverticula along the course of the sigmoid colon without wall thickening or inflammatory change. The appendix is normal. The stomach is distended with fluid and debris. No small bowel dilatation to suggest obstruction. BONES AND SOFT TISSUES: Calcified injection granulomata in the right gluteal subcutaneous fat. Otherwise no focal soft tissue abnormalities. No osseous destructive lesions. Degenerative disc changes and facet arthropathy of the lumbar spine. IMPRESSION: Bilateral perinephric fat stranding is nonspecific though may be seen in the setting of pyelonephritis given reported history of bacteremia. Correlation with urinalysis is suggested. Punctate nonobstructing right upper pole renal calculus. No hydronephrosis. Atherosclerotic vascular disease. Mild sigmoid diverticulosis without findings of diverticulitis. Signed by: Dr. Estrada Arias M.D. on 07/16/2018 2:01 PM
--- NOTE | 2018-07-16 14:10 | NUR ---
PATIENT ARRIVED ON THE UNIT AT 1352 PER WHEELCHAIR FROM RADIOLOGY. PATIENT IS AWAKE AND IN STABLE CONDITION WITH NO S/S OF RESPIRATORY DISTRESS. NO PAIN VOICED. PRESENT IN ROOM. CALL LIGHT IS WITHIN REACH, PATIENT INSTRUCTED TO CALL FOR ASSISTANCE NEEDED.
[2018-07-16] MEDS: LOSARTAN POTASSIUM 25 MG TAB PO SCH (17:20)
--- NOTE | 2018-07-16 19:30 | NUR ---
PATIENT IS RESTING IN BED- IN STABLE CONDITION WITH NO S/S OF RESPIRATORY DISTRESS. NO PAIN VOICED. IV FLUIDS INFUSING. FAMILY MEMBERS PRESENT IN ROOM. CALL LIGHT IS WITHIN REACH, PATIENT INSTRUCTED TO CALL FOR ASSISTANCE NEEDED. BEDSIDE REPORT GIVEN TO ONCOMING NURSE.
--- NOTE | 2018-07-16 19:32 | NUR ---
PT IS RESTING IN BED WITH FAMILY AT BEDSIDE. NO RESPIRATORY DISTRESS NOTED. BED IN THE LOWEST POSITION, LOCKED, AND CALL LIGHT WITHIN REACH. WILL CONTINUE TO MONITOR.
[2018-07-16] MEDS: ATORVASTATIN 10 MG TAB PO SCH (20:55)
[2018-07-17] VITALS (8 sets, daily range): BP systolic 108–138; BP diastolic 55–77
[2018-07-17] MEDS: SODIUM CHLORIDE 0.9% 1000ML 1,000 ML IV SCH ×4 (00:49→22:43)
[2018-07-17] MEDS: INSULIN LISPRO 100 UNIT/1 ML 3ML VIAL SQ SCH ×4 (07:30→20:32)
--- NOTE | 2018-07-17 08:00 | NUR ---
PATIENT IS IN STABLE CONDITION WITH NO S/S OF RESPIRATORY DISTRESS. NO PAIN VOICED. IV FLUIDS INFUSING. PRESENT IN ROOM. CALL LIGHT IS WITHIN REACH, PATIENT INSTRUCTED TO CALL FOR ASSISTANCE NEEDED.
[2018-07-17] MEDS: GLIMEPIRIDE 2 MG TAB PO SCH (08:05)
[2018-07-17] MEDS: CEFEPIME 1GM/NS 0.9% 50 ML 50 ML IV SCH ×2 (08:05→20:32)
[2018-07-17] MEDS: LOSARTAN POTASSIUM 25 MG TAB PO SCH (08:06)
[2018-07-17] MEDS: ACETAMINOPHEN 325 MG TAB PO PRN (08:07)
--- NOTE | 2018-07-17 09:13 | NUR ---
DR. ALCAZAR ON THE UNIT AND INFORMED OF SIRS ALERT FROM SEPSIS SCREENING- NO NEW ORDERS GIVEN.
--- NOTE | 2018-07-17 19:11 | NUR ---
PATIENT IS IN STABLE CONDITION WITH NO S/S OF RESPIRATORY DISTRESS. NO PAIN VOICED. IV FLUIDS INFUSING. FAMILY MEMBERS PRESENT IN ROOM. CALL LIGHT IS WITHIN REACH, PATIENT INSTRUCTED TO CALL FOR ASSISTANCE NEEDED. BEDSIDE REPORT GIVEN TO ONCOMING NURSE.
[2018-07-17] MEDS: ATORVASTATIN 10 MG TAB PO SCH (20:32)
--- NOTE | 2018-07-17 20:45 | Consultation ---
DATE OF CONSULTATION: REASON FOR CONSULTATION: Sepsis bacteremia. HISTORY OF PRESENT ILLNESS: This is a very pleasant 68-year-old female, apparently she is having fever and chills. She has been sick for a few days. She [facility]. She was there for couple hours. They have given IV fluids and IV antibiotics, and she was discharged home, but she was contacted again that she is positive for bacteria, so she came here. The patient apparently originally was also tested for influenza and she was getting Tamiflu, but 2 days later, the blood cultures are gram-negative rods, so she was contacted to come back here. When she first came according to family, she was quite ill and is confused, but today she started seeing some improvement. The patient at the present time has no fever, no chills. PAST MEDICAL HISTORY: Diabetes mellitus, hypertension, and dyslipidemia. PAST SURGICAL HISTORY: Hysterectomy. SOCIAL HISTORY: There is no smoking, drug abuse, or alcohol abuse. ALLERGIES: NKA. MEDICATIONS: She is on Lipitor, metformin, losartan, and Amaryl. REVIEW OF SYSTEMS: GENERAL: At the present time, she is doing well. HEENT: Negative. PULMONARY: Negative. CARDIAC: Negative. : Negative. SKIN: There are no other rashes. LABORATORY DATA: Reviewed. Her cultures here are negative. Her white count is 7.39 and hemoglobin 11.3. Her sodium 135, potassium 4.1, creatinine 1.23 on admission. Liver enzyme within normal limit. The patient has been on insulin, Tylenol, Cozaar, cefepime. She had a CT scan of abdomen and pelvis, which showed bilateral perinephric fat stranding. PHYSICAL EXAMINATION: GENERAL: She is currently alert, oriented, does not seem to be in acute distress. VITAL SIGNS: Stable. Currently afebrile. HEENT: She does not appear icteric. NECK: Supple. CHEST: Clear. HEART: S1 and S2. No murmurs. ABDOMEN: Soft. Bowel sounds present. No tenderness. No hepatosplenomegaly. EXTREMITIES: No edema. SKIN: No rash. IMPRESSION: 1. Influenza, treated. 2. Gram-negative sepsis. The repeat cultures here are negative. I would like to find out what was the bacteria she had grew. We will try to contact the other place, Urgent Care Center to find what it is. Further recommendation depending on what I get. 3. Other medical problems as mentioned above, all seem to be stable at the present time. We will follow. MD VANDA Zendejas/SHANON /[id number]
[2018-07-18] VITALS: BP 122/57
[2018-07-18 04:00] VITALS: BP 118/56
[2018-07-18] MEDS: INSULIN LISPRO 100 UNIT/1 ML 3ML VIAL SQ SCH (07:30)
[2018-07-18 08:00] VITALS: BP 148/67
--- NOTE | 2018-07-18 08:00 | NUR ---
The pt. is up on the bedside sofa for breakfast and denies pain or discomfort at this time. She reports that she is going home today. Iv fluids continues at this time.
[2018-07-18 08:13] VITALS: BP 148/67
[2018-07-18] MEDS: CEFEPIME 1GM/NS 0.9% 50 ML 50 ML IV SCH (08:29)
[2018-07-18] MEDS: GLIMEPIRIDE 2 MG TAB PO SCH (08:29)
[2018-07-18] MEDS: LOSARTAN POTASSIUM 25 MG TAB PO SCH (08:30)
[2018-07-18 11:58] VITALS: BP 150/70
[2018-07-18] MEDS ORDERED: ONDANSETRON HCL 4 MG ORAL DISINTEGRATING TAB PO PRN (12:15)
--- NOTE | 2018-07-18 12:37 | NUR ---
The pt.'s ride has arrived and is in route to private car for transport home. The pt. and spouse received discharge information,iv removal and prescriptions prior to discharge.
--- NOTE | 2018-07-19 02:28 | Discharge Summary ---
FINAL DIAGNOSES: 1. Sepsis without shock. 2. Fever. 3. Bilateral pyelonephritis. 4. Gram-negative francisco bacteremia. 5. Urinary tract infection. PAYMENT PROCESSOR: Dr. Lidia Us. SUMMARY: A 68-year-old female with influenza, emergency room visit. The patient was discharged home with Tamiflu. She could not tolerate the medication, but we called back for admission after her blood culture came out to be gram-negative francisco. The patient is otherwise stable, however. She was having recurrent fever. Her microbiology is repeated. Urine culture negative and blood culture was negative. Previous blood culture was gram-negative francisco. The patient was stable. CT scan of the abdomen and pelvis showed that the patient may have bilateral perinephric fat stranding with possible pyelonephritis. The patient is otherwise stable. She is afebrile. White cell count is normal now. The patient is to go home today. The patient has been cleared by Dr. Us for discharge home with Cipro 500 mg twice a day for 14 days. The patient is to follow up with Dr. Us in approximately 1 week. The patient is stable and discharged home. Resume home medication. MD TATUM Gardiner/SHANON /[id number]
== END 2018-07-18 12:59 | disposition home or self-care (01) | DRG 872 ==
LOC: ER 08:33 → ERHOLD 10:56 → IMCU 13:03 → OBSVTOIN 07-16 12:25 → MED/SURG3 07-16 14:01
PROVIDERS: ADMIT Internal Medicine; ATTEND Internal Medicine
DX: A41.50 Gram-negative sepsis, unspecified (principal); N10 Acute pyelonephritis; E11.9 Type 2 diabetes mellitus without complications; I10 Essential (primary) hypertension; E78.5 Hyperlipidemia, unspecified; Z79.84 Long term (current) use of oral hypoglycemic drugs; B96.89 Other specified bacterial agents as the cause of diseases classified elsewhere; J06.9 Acute upper respiratory infection, unspecified; J11.1 Influenza due to unidentified influenza virus with other respiratory manifestations
CPT/HCPCS: 36415; 74176; 80053; 81001; 82948; 85025; 87040; 87086; 93306; 99284; G0378; J0692; J2543; J7030

== ENCOUNTER 2021-12-23 11:08 | Emergency (ER) | payer MEDICARE, OTHER ==
[~2021-12-23] VITALS: Ht 167.6 cm; Wt 74.8 kg
[~2021-12-23 11:08] MED LIST: ATORVASTATIN CA10 MG PO; GLIMEPIRIDE2 MG PO; LOSARTAN POTASS25 MG PO; METFORMIN HCL500 MG PO
[2021-12-23] MEDS ORDERED: ONDANSETRON HCL INJ 2MG/ML 2ML 2 MG/ML VIAL IV STA (11:56)
[2021-12-23] MEDS ORDERED: ULTRAM50 MG PO (11:59)
[2021-12-23] MEDS ORDERED: BASAGLAR K100 UNIT/1 (11:59)
[2021-12-23] MEDS ORDERED: SODIUM CHLORIDE 0.9% 1000ML 1,000 ML IV SCH (12:00)
[2021-12-23] MEDS ORDERED: SODIUM CHLORIDE 0.9% 1000ML 1,000 ML ONE (12:04)
[2021-12-23] MEDS ORDERED: ONDANSETRON HCL INJ 2MG/ML 2ML 2 MG/ML VIAL ONE (12:04)
[2021-12-23] MEDS ORDERED: ONDANSETRON ODT4 MG PO (14:46)
== END 2021-12-23 15:02 | disposition home or self-care (01) ==
LOC: FSED 11:28
DX: R11.2 Nausea with vomiting, unspecified (principal); R42 Dizziness and giddiness; T40.425A Adverse effect of tramadol, initial encounter; E11.65 Type 2 diabetes mellitus with hyperglycemia; I10 Essential (primary) hypertension; E78.5 Hyperlipidemia, unspecified; M25.562 Pain in left knee; M25.462 Effusion, left knee
CPT/HCPCS: 70450; 71250; 73562; 74176; 80053; 81003; 82553; 84484; 85025; 87400; 96374; 99284; J2405; J7030; 93005

== ENCOUNTER 2024-04-12 12:49 | Emergency (ER) | payer MEDICARE ==
[~2024-04-12] VITALS: Ht 167.6 cm; Wt 74.8 kg
[~2024-04-12 12:49] MED LIST changes: +BASAGLAR K100 UNIT/1; +ONDANSETRON ODT4 MG PO; +ULTRAM50 MG PO
[2024-04-12] MEDS ORDERED: MEDROL4 M2 PO (13:40)
[2024-04-12 14:24] VITALS: PULSE 88; RESP 18; TEMP 98.2
[2024-04-12 14:28] VITALS: PULSE 72; RESP 18; TEMP 98.4; O2SAT 100
== END 2024-04-12 14:30 | disposition home or self-care (01) ==
LOC: ER 13:00
DX: M54.41 Lumbago with sciatica, right side (principal); I10 Essential (primary) hypertension; E11.9 Type 2 diabetes mellitus without complications; E78.5 Hyperlipidemia, unspecified; K21.9 Gastro-esophageal reflux disease without esophagitis; M25.562 Pain in left knee; G89.29 Other chronic pain
CPT/HCPCS: 99282

== ENCOUNTER 2024-04-17 16:03 | Emergency (ER) | payer MEDICARE ==
[~2024-04-17] VITALS: Ht 167.6 cm; Wt 74.8 kg
[~2024-04-17 16:03] MED LIST changes: +MEDROL4 M2 PO
[2024-04-17 16:48] VITALS: PULSE 82; RESP 17; TEMP 99; O2SAT 99
[2024-04-17] MEDS ORDERED: GABAPENTIN100 MG PO (17:10)
== END 2024-04-17 17:20 | disposition home or self-care (01) ==
LOC: ER 17:00
DX: M54.41 Lumbago with sciatica, right side (principal); I10 Essential (primary) hypertension; E11.9 Type 2 diabetes mellitus without complications; E78.5 Hyperlipidemia, unspecified; K21.9 Gastro-esophageal reflux disease without esophagitis; M25.562 Pain in left knee; G89.29 Other chronic pain
CPT/HCPCS: 99282